=== PATIENT | female | born 1950 | race Caucasian/White ===

== ENCOUNTER → 2023-09-20 09:37 | Outpatient (REF) | payer MEDICARE, BC, SELFPAY | LOC: REG 09:37 | PROVIDERS: ATTENDING PHYSICIAN Internal Medicine Geriatric Medicine | DX: K29.60 Other gastritis without bleeding (principal); R00.2 Palpitations; E78.2 Mixed hyperlipidemia; G25.0 Essential tremor; M54.16 Radiculopathy, lumbar region; I95.1 Orthostatic hypotension; R79.89 Other specified abnormal findings of blood chemistry; Z13.89 Encounter for screening for other disorder; R10.13 Epigastric pain; Z87.19 Personal history of other diseases of the digestive system; G90.1 Familial dysautonomia [Riley-Day]; G62.9 Polyneuropathy, unspecified; E53.1 Pyridoxine deficiency; S16.1XXA Strain of muscle, fascia and tendon at neck level, initial encounter | CPT/HCPCS: 70470; 70492; 72052; Q9967 ==

== ENCOUNTER 2023-10-28 21:04 | Emergency (ER) | payer MEDICARE, BC, SELFPAY ==
[2023-10-28 21:07] VITALS: BP 184/90
--- NOTE | 2023-10-28 23:38 | ED.GENMED ---
History of Present Illness
General
Chief Complaint: Eye Problems
Source: patient and spouse
Exam Limitations: none
Time Seen by Provider: 10/28/23 23:26
Nursing documentation reviewed up to this point in time: agreed with
Travel History
Have you had any contact with someone who has COVID-19?: No
Do you have any symptoms of coronavirus? Fever > 100 degrees, chills, cough, shortness of breath, sore throat, loss of taste or smell, muscle aches, or headache?: No
History of Present Illness
History of Present Illness:
This is a 73-year-old woman who states while she was reaching for something in a cabinet, a container of liquid silver [place] fell over and the lid to the [place] was loose, falling off causing the liquid to spill into her washing machine and
splashed into her right eye. This occurred around 8:15 PM. Patient admits to immediate irritation of her right eye with mildly blurred vision. She immediately rinsed her eye with tap water for at least 10 to 15 minutes. She continued with some
right eye irritation and a sense of blurring of her vision which has since resolved since arrival to the ED. She denies tearing, denies foreign body sensation. She does not wear contacts nor corrective lenses. Her vision now feels back to normal.
No headache.
According to who is accompanying, this over [place] has a pH of 2.
Past History
Past History
ED Past Medical History: Other (POTS); Negative Asthma, HTN, Hypercholesterolemia or NIDDM
ED Past Surgical History: Gynecological and Orthopedic
Social History
Tobacco: Non-smoker
Alcohol: Occasional
Drug: None
Personal:
Living: with family
Employment: Retired
Family History
Family History: Other (Noncontributory)
Phy Exam
Physical Exam
Physical Exam:
GENERAL: Alert , in no apparent distress. 73-year-old woman appears her stated age. She is bright and alert, pleasant, appears in no acute distress. is accompanying.
EYE: pupils equal and reactive. Extraocular muscles intact. Visual acuity grossly intact. There is very minimal conjunctival erythema medial aspect of the right eye. No chemosis. No tearing. Eyelids without erythema nor edema. Right eye
visualized with fluorescein stain and Merida lamp shows no corneal abrasion.
NECK: Supple, nontender, no significant adenopathy.
ENT: oral mucosa is moist. No rhinorrhea.
CARDIAC: Regular rate and rhythm. no murmur.
NEUROLOGICAL: Alert and oriented x3, no focal neuro deficits. Gait is pearson and steady.
SKIN: Warm and dry, normal color, skin intact. No rash.
MUSCULOSKELETAL: No palpable tenderness.
PSYCH: Normal and appropriate interaction.
Course
Orders/Labs/Results
Orders:
Orders
10/28/23 23:38
Gentamicin [Genoptic 0.3% Eye Drops] See Dose Instructions OPHTH NOW STA
10/28/23 23:47
Fluorescein Sodium [Ful-[place]] 2 mg .ROUTE .STK-MED ONE
Vital Signs
Initial and Last Documented VS:
Initial Vital Signs
Temp Pulse Resp BP Pulse Ox
98.6 F 65 18 184/90 99
10/28/23 21:07 10/28/23 21:07 10/28/23 21:07 10/28/23 21:07 10/28/23 21:07
Last Documented Vital Signs
Temp Pulse Resp BP Pulse Ox
98.6 F 66 14 158/74 96
10/28/23 21:07 10/28/23 23:43 10/28/23 23:43 10/28/23 23:43 10/28/23 23:43
MDM/Problems Addressed
Differential Diagnosis Includes:
Patient presents with stitch cleaner/acidic solution splashed into her her right eye. Immediately rinsed with copious amounts of tap water at home.
Currently feeling improved without eye irritation/pain and no vision difficulties.
Exam remarkable for very mild conjunctival injection medial aspect of the right eye. No evidence of corneal abrasion or ulcer.
No evidence of eyelid nor surrounding skin involvement.
Will treat mild chemical conjunctivitis with a short course of gentamicin ophthalmic drops.
Recommend follow-up with english professor as needed.
*Pulse Oximetry
Patient hypoxic: no
*Critical Care Note
Total Time (30-74mins, 75-104mins- exclusive of procedures): Not Applicable
ED Attending Note
-
Portions of this chart may have been created with voice recognition software.� Occasional wrong word or��sound alike� substitutions may have occurred due to the inherent limitations of voice recognition software.
Discharge Plan
Departure
Patient Disposition: Home (Routine Discharge)
Date of Disposition: 10/28/23
Time of Disposition: 23:52
Patient with high blood pressure during this ER visit?: Yes
Condition: Good
Discharge Problem:
Acute chemical conjunctivitis of right eye
Instructions: How to Use Eye Drops, Conjunctivitis (Noninfectious Pinkeye), BLOOD PRESSURE
Prescriptions:
New
gentamicin 0.3 % drops
1 drp ophthalmic (eye) QID Qty: 5 0RF
No Action
amoxicillin 500 MG capsule
500 mg PO BID
Patient Comments:
dose confirmation is necessary!!
albuterol sulfate 1 PUFF HFA aerosol inhaler
2 puff inhalation R Q4HPRN PRN (Reason: wheezing)
progesterone micronized [Prometrium] 100 MG capsule
100 mg PO DAILY
conjugated estrogens [Premarin] 0.3 MG tablet
0.3 mg topical DAILY
Patient Comments:
Delviered via patch. Dose confirmation is necessary!!
prednisone 20 MG tablet
40 mg PO DAILY Qty: 10 0RF
benzonatate 100 MG capsule
100 mg PO TIDPRN PRN (Reason: Cough) Qty: 15 0RF
Activity Restrictions/Additional Instructions:
Follow-up with your english professor/telecommunication equipment repairer next week if eye irritation persists.
Interventions
Interventions:
*Risk Screen - Suicide Last Done: 10/28/23 23:43
*General Assessment Last Done: 10/28/23 21:07
*Neglect/Abuse Screening Last Done: 10/28/23 23:43
*ED COVID-19 Vaccine History Last Done: 10/28/23 21:07
Discharge Date and Time
Print Language: ZIMB[place]WE[place]
[2023-10-28 23:43] VITALS: BP 158/74
[2023-10-28] MEDS: GENOPTIC 0.3% EYE DROPS 1 DROP OPHTH (23:56)
== END 2023-10-29 00:01 | disposition home or self-care (01) ==
LOC: EMR 21:04
PROVIDERS: EMERGENCY PHYSICIAN Emergency Medicine; FAMILY PHYSICIAN Internal Medicine Geriatric Medicine
DX: T65.891A Toxic effect of other specified substances, accidental (unintentional), initial encounter (principal); H10.211 Acute toxic conjunctivitis, right eye; I10 Essential (primary) hypertension
CPT/HCPCS: 99283

== ENCOUNTER → 2023-11-13 09:00 | Outpatient (REF) | payer MEDICARE, BC, SELFPAY | LOC: HWRAD 09:00 | PROVIDERS: ATTENDING PHYSICIAN Nurse Practitioner Family | DX: R22.1 Localized swelling, mass and lump, neck (principal) | CPT/HCPCS: 70470; 70492; Q9967 ==

== ENCOUNTER → 2023-12-14 10:20 | Outpatient (REF) | payer MEDICARE, BC, SELFPAY | LOC: WDC 10:20 | PROVIDERS: ATTENDING PHYSICIAN Nurse Practitioner Family | DX: Z12.31 Encounter for screening mammogram for malignant neoplasm of breast (principal) | CPT/HCPCS: 77063; 77067 ==

== ENCOUNTER → 2023-12-19 10:23 | Outpatient (REF) | payer MEDICARE, BC, SELFPAY | LOC: WDC 10:23 | PROVIDERS: ATTENDING PHYSICIAN Nurse Practitioner Family | DX: R92.8 Other abnormal and inconclusive findings on diagnostic imaging of breast (principal) | CPT/HCPCS: 76642 ==

== ENCOUNTER → 2024-04-22 08:07 | Outpatient (REF) | payer MEDICARE, BC, SELFPAY | LOC: RAD 08:07 | PROVIDERS: ATTENDING PHYSICIAN Internal Medicine Geriatric Medicine | DX: Z00.00 Encounter for general adult medical examination without abnormal findings (principal); N95.9 Unspecified menopausal and perimenopausal disorder; R00.2 Palpitations; K29.60 Other gastritis without bleeding; E78.2 Mixed hyperlipidemia; G25.0 Essential tremor; M54.16 Radiculopathy, lumbar region; I95.1 Orthostatic hypotension | CPT/HCPCS: 76700; 77080 ==

== ENCOUNTER → 2024-10-04 11:03 | Outpatient (REF) | payer MEDICARE, BC, SELFPAY | LOC: RCS 11:03 | PROVIDERS: ATTENDING PHYSICIAN Nurse Practitioner Family | DX: R00.2 Palpitations (principal) | CPT/HCPCS: 93005 ==

== ENCOUNTER 2025-03-17 17:23 | Day surgery (SDC) | payer MEDICARE, BC, SELFPAY ==
[2025-03-17] VITALS (12 sets, daily range): BP systolic 125–151; BP diastolic 62–92
[2025-03-17 11:11] LABS: Hematocrit 42.2 % (37.0-47.0); Hemoglobin 14.0 g/dL (12.0-16.0); Mean Corp Hgb Conc. 33.2 g/dL (33.0-37.0); Mean Corpuscular Volume 91.5 fL (81.0-99.0); Nucleated Red Blood Cells % 0 %; Platelet Count 230 10^3/uL (130-400); Red Cell Dist. Width 13.4 % (11.5-14.5)
[2025-03-17 11:32] LABS: ALT (SGPT) 18 U/L (0-35); AST (SGOT) 22 U/L (14-36); Albumin 4.3 g/dl (3.5-5.0); Alkaline Phosphatase 61 U/L (38-126); Blood Urea Nitrogen 17 mg/dl (7-17); Calcium 9.2 mg/dl (8.4-10.2); Carbon Dioxide 27 mmol/L (22-30); Chloride 108 mmol/L (98-107); Glucose 106 mg/dl (70-99); Lipase 76 U/L (23-300); Potassium 4.1 mmol/L (3.5-5.1); Sodium 140 mmol/L (135-145); Total Protein 7.0 g/dl (6.3-8.2); eGFR > 60.00
[2025-03-17 11:38] LABS: Urine Character Clear (Clear)
--- NOTE | 2025-03-17 16:23 | ED.GENMED ---
History of Present Illness
General
Chief Complaint: Abdominal Pain
Time Seen by Provider: 03/17/25 12:37
History of Present Illness
History of Present Illness:
74-year-old female presents to the emergency department for evaluation of generalized abdominal pain that began last night. She reports over the past month she has had intermittent increase in heartburn has been taking Pepcid for this. Notes that
last night she began to feel bloated and constipated although did have a bowel movement yesterday that was nonbloody and nonmelanotic. Pain seems to wax and wane throughout the day but is worse when upright and walking. No fevers or chills. No
prior abdominal surgeries
Past History
Past History
ED Past Medical History: Other (POTS); Negative Asthma, HTN, Hypercholesterolemia or NIDDM
ED Past Surgical History: Gynecological and Orthopedic
Social History
Tobacco: Non-smoker
Alcohol: Occasional
Drug: None
Personal:
Living: with family
Employment: Retired
Family History
Family History: Other (Noncontributory)
Review of Systems
Review of Systems
Allergies reviewed?: Yes
All Other Systems: ROS reviewed and negative except as documented in HPI and ROS
Phy Exam
Physical Exam
Physical Exam:
GEN: Well appearing, NAD, WDWN
HEENT: Oral mucosa moist, no scleral icterus
Cardiac: Regular rate
Lung: No respiratory distress, no tachypnea
Abdomen: Soft, focal right lower quadrant tenderness, no rigidity or peritoneal signs
MSK: No gross deformity or injuries
Skin: Good color, no pallor or jaundice, no rashes
Neuro: AO x3, moves all extremities freely
Psych: Calm, cooperative
Course
Orders/Labs/Results
Orders:
Orders
03/17/25 Lunch
NPO
Allow oral meds: Yes
Allow clear liquids: No
03/17/25 10:51
Electrocardiogram (*1) Urgent
Reason for Study: Abdominal Pain
03/17/25 10:52
EKG- Treatment ONCE
03/17/25 11:00
Complete Blood Count/With Diff Urgent
Comprehensive Metabolic Panel Urgent
Lipase Urgent
03/17/25 11:10
Urinalysis Reflex To Culture Urgent
Date Specimen was Collected: 03/17/25
Time Specimen was Collected: 10:51
03/17/25 12:54
CT Abd/Pel (IV only)-DH only Urgent
Comment:
Reason For Exam: RLQ pain
03/17/25 Dinner
Regular
03/17/25 16:22
Lactated Ringers [Lr] 1,000 ml IV BOLUS
Piperacillin/Tazo 3.375 Gram [Zosyn] 3.375 gram in 50 ml IV NOW
03/17/25 16:37
Dexamethasone Sod Phosphate [Decadron] 20 mg .ROUTE .STK-MED ONE
Fentanyl Citrate/Pf [Sublimaze] 100 mcg .ROUTE .STK-MED ONE
Lidocaine HCl/Pf [Xylocaine-Mpf 1% Vial] 50 mg .ROUTE .STK-MED ONE
Midazolam HCl [Versed] 2 mg .ROUTE .STK-MED ONE
Ondansetron Injectable [Zofran] 4 mg .ROUTE .STK-MED ONE
Propofol [Diprivan] 20 ml .ROUTE .STK-MED
Rocuronium [place] [Rocuronium] 50 mg .ROUTE .STK-MED ONE
03/17/25 16:39
Fentanyl Citrate/Pf [Sublimaze] 25 mcg IV [id number] PRN
HYDROmorphone [Dilaudid] 0.25 mg IV PACU-Q5MPRN PRN
HYDROmorphone [Dilaudid] 0.5 mg IV PACU-Q5MPRN PRN
Ondansetron Injectable [Zofran] 4 mg IV PACU-ONCEPRN PRN
Notify MD As Directed
Notify physician if: for SDS patients with known or suspected sleep obstructive sleep apnea, monitor in the
PACU.
Notify MD for any apneic/desaturation episodes
O2 Therapy [RESP] Urgent
Titrate/Wean O2 to maintain O2 sat greater than (%): 92
Special Instructions: -Provide supplemental oxygen to achieve O2 sat of 92% or greater.
-After 15 min, may wean O2 and discontinue if patient is able to maintain O2 sat of 92%
or greater during recovery period.
If patient is a discharge home, without oxygen therapy, notify anestheiologist if
unable to maintain O2 SAT of 92% or greater on room air for MD clearance.
03/17/25 16:41
Sequential Compression Device [Pneumatic Compression Sleeves] As Directed
Type: Knee high
03/17/25 16:42
DX Deep Vein Thrombosis Video Routine
03/17/25 16:45
Normosol (Mult Electrolytes) [Normosol-R/Plasmalyte-A] 1,000 ml IV PER PROTOCOL
03/17/25 17:02
Bupivacaine 0.5%Pf/Epinephrin [Sensorcain-Mpf Epi 0.5%-0.0005] 30 ml .ROUTE .STK-MED ONE
03/17/25 17:17
Admit Patient As Directed
Co-Sign Provider:
Level of Care: Post Proc/Surg Recovery
Assign to:: Medical/Surgical
Physician / Group: Keegan/Gen surgery
Diagnosis: Acute appendicitis
Reason for Overnight Stay: Standard of Care
Code Status As Directed
Resuscitation Status: Full Code
Acetaminophen [Tylenol] 650 mg PO Q4HPRN PRN
HYDROmorphone [Dilaudid] 0.5 mg IV Q4HPRN PRN
HYDROmorphone [Dilaudid] 1 mg IV Q4HPRN PRN
Ondansetron Injectable [Zofran] 4 mg IV Q6HPRN PRN
Oxycodone [Roxicodone] 5 mg PO Q4HPRN PRN
Activity As Directed
Activity Level: Out of Bed-Early Mobility
Intake/ Output As Directed
Frequency: Per unit guidelines
Vital Signs As Directed
Frequency: Per unit guidelines
PRN Pain Medication Management As Directed
May give lesser potent ordered pain med per pt: Yes
preference::
Protocol:: Medication orders for pain may be administered in a
manner that supports deferring to patient preference
when the pt is:
- Requesting an ordered lesser potent pain medication.
Least to most potent pain medications are defined
as: acetaminophen < NSAID < tramadol < opioids
(morphine, oxycodone, hydromorphone).
- Requesting a lesser dose of the same medication IF
ORDERED.
- Requesting a less intrusive route of administration
if both routes are prescribed by the provider (PO <
IV).
03/17/25 17:18
Rx Incentive Spirometry [RESP] Routine
Frequency: q1h while awake
# of times per hour: 10
03/17/25 17:48
OR Pathology Routine
Pre-Operative Diagnosis: ACUTE APPENDICITIS
Post-Operative Diagnosis: SAME
Operative Procedure: LAP APPY
Surgeon: KEEGAN
Circulating Nurse: SYLVAIN
Specimen Type: APPENDIX
03/17/25 18:16
Ketorolac [Toradol] 30 mg .ROUTE .STK-MED ONE
Sugammadex Sodium [[place]] 200 mg .ROUTE .STK-MED ONE
03/17/25 23:00
Piperacillin/Tazo 3.375 Gram [Zosyn] 3.375 gram in 50 ml IV Q6H
03/18/25 00:00
Ketorolac [Toradol] 10 mg IV Q6HPRN PRN
Abnormal Lab Results
03/17/25
11:00
WBC 12.1 H 10^3/uL
(4.8-10.8)
Absolute Neuts (auto) 10.3 H 10^3/uL
(1.4-6.5)
Absolute Lymphs (auto) 1.1 L 10^3/uL
(1.2-3.4)
Neutrophils % 85.4 H %
(42.2-75.2)
Lymphocytes % 9.0 L %
(20.5-51.1)
Chloride 108 H mmol/L
(98-107)
Glucose 106 H mg/dl
(70-99)
03/17/25 11:00
03/17/25 11:00
Vital Signs
Initial and Last Documented VS:
Initial Vital Signs
Temp Pulse Resp BP Pulse Ox
98.3 F 79 20 142/92 99
03/17/25 10:47 03/17/25 10:47 03/17/25 10:47 03/17/25 10:47 03/17/25 10:47
Last Documented Vital Signs
Temp Pulse Resp BP Pulse Ox
98.1 F 87 9 140/73 96
03/17/25 18:21 03/17/25 18:45 03/17/25 18:45 03/17/25 18:45 03/17/25 18:45
MDM/Problems Addressed
MDM/Problems Addressed:
Imaging reveals acute appendicitis which is compatible with her clinical presentation. Will be admitted to the surgical service for operative intervention
*Pulse Oximetry
SaO2: 99
Oxygen Mode of Delivery: Room air
Patient hypoxic: no
*Critical Care Note
Total Time (30-74mins, 75-104mins- exclusive of procedures): Not Applicable
ED Attending Note
-
Portions of this chart may have been created with voice recognition software.� Occasional wrong word or��sound alike� substitutions may have occurred due to the inherent limitations of voice recognition software.
Discharge Plan
Departure
Patient Disposition: Admit
Date of Disposition: 03/17/25
Time of Disposition: 16:23
Admit to: Med/Surg
Presentation/result/management discussed w/ accepting MD/DO: Gen Lotus Allison
Discharge Problem:
Acute appendicitis
Interventions
Interventions:
*Risk Screen - Suicide Last Done: 03/17/25 13:47
*General Assessment Last Done: 03/17/25 13:47
*Neglect/Abuse Screening Last Done: 03/17/25 13:47
*ED- Fall Risk Assessment Last Done: 03/17/25 13:47
*Nursing Disposition Last Done: 03/17/25 17:08
BK-Nozigc-Jtfxdmzooz Assessment Last Done: 03/17/25 13:46
Discharge Date and Time
Discharge Date/Time: 03/17/25 17:09
[2025-03-17] MEDS: ZOSYN 50 IV ×2 (16:30→22:45)
--- NOTE | 2025-03-17 17:02 | W.SUR.PREOP ---
Pre-Operative Surgical Note
-
I have examined this patient prior to the performance of the scheduled procedure.
The patient's condition is unchanged from the time of the current History and
Physical and the patient is able to undergo the scheduled procedure.
--- NOTE | 2025-03-17 17:03 | HPS.HSE ---
Addendum entered and electronically signed by Denton Allison MD 03/17/25 17:16:
I saw and examined the patient independently.
The Bed Rubber's note was reviewed and I agree with the note, assessment and plan except where noted below.
Comment: This is a 74-year-old female with no significant past medical history who presents with 1 day of right lower quadrant abdominal pain found to have acute appendicitis.
Will plan for laparoscopic appendectomy today.
Will admit to the surgical service, PSR
N.p.o., IV fluids, IV antibiotics.
Risks/Benefits/Alternatives, expected postoperative course and possible complications (bleeding, infection, injury to surrounding structures, acute/chronic pain) discussed at length. Patient wishes to proceed with surgery. All questions answered.
Consent obtained.
I spent 65 minutes in total for the care of this patient today including direct patient care and counseling, reviewing labs, imaging, coordination of care, as well as documentation.
Original Note:
Family Physician
-
Family Physician: Radhames Soria
Chief Complaint
-
RLQ pain
History of Present Illness
Ms Butcher is a 74 yo female with a h/o POTS, BL knee surgery, ODILIA (not on cpap), oab and essential tremor who presents through the ED with RLQ pain which began last night. Initially her pain was more generalized, but then began to localize to her RLQ
where it remains. Over the past few weeks she has noted increasing symptoms of indigestion and GERD and has been taking OTC agents, but she denies associated pain or nausea with this. She has felt bloated. She was able to have a BM last night but
did feel a little constipated. On exam, RLQ is tender with +Rovsing sign. She denies fevers or chills and has been afebrile in the ED.
Medical History
Past Medical History
Past Medical History: Reports Other (POTS, OAB, Essential tremor, lumbar radiculopathy, DDD)
Past Surgical History: Reports Orthopedic (BL Knees)
Social History
Tobacco: Non-smoker
Alcohol: Occasional
Drug: None
Personal:
Family History
Family History: Cancer (colon ca in father)
Allergies / Home Medications
Allergies reflects when Allergies were last updated in [employer].
Home Medications with original date entered in [employer]
Allergy/Medication List:
Patient Allergies
Allergy/AdvReac Type Severity Reaction Status Date / Time
ciprofloxacin (From Cipro) Allergy Unknown Verified 03/17/25 10:47
latex Allergy Unknown Verified 03/17/25 10:47
sulfamethoxazole (From Allergy Unknown Verified 03/17/25 10:47
Bactrim)
trimethoprim (From Bactrim) Allergy Unknown Verified 03/17/25 10:47
�Medication �Instructions �Recorded �Confirmed �Type
progesterone micronized 100 mg 100 mg PO HS 10/02/16 03/17/25 History
capsule (Prometrium)
estradiol 0.0375 mg/24 hr 1 patch transdermal MOTH 03/17/25 03/17/25 History
semiweekly transdermal patch
Review of Systems
-
History Source: Patient and Family
A 12 point ROS was completed and negative except as noted: Yes
Physical Exam
Vital Signs
Vital Signs
Temp Pulse Resp BP Pulse Ox
98.3 F 79 20 142/92 99
03/17/25 10:47 03/17/25 10:47 03/17/25 10:47 03/17/25 10:47 03/17/25 16:24
Physical Exam
General: Well Developed and Well Nourished; No Comfortable
HEENT: NormoCephalic and Moist mucous membranes
Respiratory: Non Labored Respirations
GI: Soft, Non Distended and Tender (RLQ)
Skin: Warm and Dry
Neuro: Awake, Alert and AO x 3
Psych: Anxious
Laboratory Results
-
08/18/25 11:00
03/17/25 11:00
Laboratory Results
Total Bilirubin 0.6 mg/dl (0.2-1.3) 03/17/25 11:00
AST 22 U/L (14-36) 03/17/25 11:00
ALT 18 U/L (0-35) 03/17/25 11:00
Alkaline Phosphatase 61 U/L (38-126) 03/17/25 11:00
Lipase 76 U/L (23-300) 03/17/25 11:00
Data Reviewed
-
CT Scan: Image Personally Visualized and interpreted, Report Reviewed by me, Discussed with Physician, Discussed with Patient and Discussed with Family
Lab Data: Labs Reviewed by me, Discussed with Physician, Discussed with Patient and Discussed with Family
Old Records: Reviewed
Impression/Plan
-
IMPRESSION: 74 yo female presenting with one day of RLQ pain with associated tenderness. Mild leukocytosis present with a WBC of 12.[address] imaging as well as exam consistent with acute appendicitis. Afebrile. VSS.
PLAN:
Keep NPO for OR
Zosyn given in the ED
Analgesics prn
Start IVF
SCDS for VTE ppx
Will plan operative intervention this evening with laparoscopic appendectomy
--- NOTE | 2025-03-17 18:09 | W.IMMPOSTOP ---
Surgical Immed Post Op Note
-
Primary Surgeon: Denton Allison MD
Assisting Surgeon: None
Pre-op Diagnosis: Acute appendicitis
Post-op Diagnosis: Same
Procedure Performed: Laparoscopic appendectomy
Anesthesia Type: General
Specimen / Cultures: Appendix
Estimated Blood Loss: 7 cc
Complications: None
Operative Findings: Acutely inflamed, mildly suppurative but nonperforated acute appendicitis. Base clear, ligated with a 0 PDS Endoloop x 2
POST OP PLAN:
Imaging: None
Labs: Routine AM
Diet: Advance to Regular as tolerated
Analgesia: Tylenol 650mg q6 Marivel, Dilaudid 0.5mg q2h PRN
Neuro/vascular checks: Per unit protocol
AC/AP: Hold Therapeutic AC, Ok for DVT PPx
Activity: Ad Maria
Wound/Incisions/Drains: Routine
Abx: Will continue antibiotics while admitted, will stop on discharge.
Dispo: RNF, anticipate discharge home tomorrow.
--- NOTE | 2025-03-17 18:10 | OR.RPT ---
Operative Report
Operative Report
Patient Name: Glenny Butcher
: 1950
Date of Operation: 03/17/2025
Preoperative Diagnosis: Acute Appendicitis
Postoperative Diagnosis: Same
Procedure(s):
Laparoscopic Appendectomy
Surgeon(s):
Dr. Allison
Inspector Machine Cut Glass(s):
None
Anesthesia: General
Estimated Blood Loss: 7 cc
Urine Output: None
Drains/Lines/Implants: None
Specimens:
1. Appendix
HPI/Surgical Indications:
This is a 74-year-old female who presents with a 1 day history of abdominal pain. Exam, labs and imaging are consistent with acute appendicitis. Risks/Benefits/Alternatives were discussed at length, and the patient agreed to proceed with surgery.
Operative Findings: Acutely inflamed, mildly suppurative but nonperforated acute appendicitis. Base clear, ligated with a 0 PDS Endoloop x 2
Procedure Description:
The patient was placed in the supine position, with the left arm tucked, and general anesthesia was induced. The abdomen was prepared and draped in a sterile fashion so as to expose the entire abdomen. A surgical time out was taken. Abdominal access
was obtained with a left subcostal Veress entry which required a single pass followed by a 5 mm left lower quadrant port, we then placed an additional 5 mm suprapubic port making sure not to injure her distended bladder. We then also placed a 12 mm
iinfra-umbilical port. The patient was placed in Trendelenberg with the right slightly up . The appendix was identified and a window was created in the mesoappendix. The appendix was suppurative and inflamed but not perforated. Using a laparoscopic
bipolar energy device, the meso appendix was divided. The base of the appendix appeared uninvolved and was ligated/divided using two 0-PDS Endoloops and the energy device. The appendix was placed in a specimen retrieval bag. Hemostasis was confirmed
and the ports were removed under visualization. The specimen was passed off the field. The umbilical port was closed with a [id number] 0-PDS and the skin for all three ports was closed with interrupted monocryls and covered with dermabond. The
patient was awoken from anesthesia in good condition and transported to the recovery area.
I was the attending physician and performed the procedure with no assistance. I was present for all portions of the case.
Denton Allison MD
[2025-03-18 03:30] VITALS: BP 124/63
--- NOTE | 2025-03-18 03:50 | PTCARENOTE ---
Ms Butcher is a 74 yo female arrived from PACU at 20:30 post Laparoscopic Appendectomy, with by her side. PMH includes POTS, BL knee surgery, ODILIA (not on cpap), oab and essential tremor. Pt bed is in a low position, call light in reach, denies
pain at this time, care ongoing.
[2025-03-18] MEDS: ZOSYN 50 IV ×2 (05:13→11:33)
[2025-03-18 07:25] VITALS: BP 105/58
[2025-03-18 07:39] LABS: Hematocrit 37.3 % (37.0-47.0); Hemoglobin 12.5 g/dL (12.0-16.0); Mean Corp Hgb Conc. 33.5 g/dL (33.0-37.0); Mean Corpuscular Volume 90.1 fL (81.0-99.0); Nucleated Red Blood Cells % 0 %; Platelet Count 228 10^3/uL (130-400); Red Cell Dist. Width 13.4 % (11.5-14.5)
[2025-03-18 08:05] LABS: ALT (SGPT) 20 U/L (0-35); AST (SGOT) 23 U/L (14-36); Albumin 3.6 g/dl (3.5-5.0); Alkaline Phosphatase 51 U/L (38-126); Blood Urea Nitrogen 18 mg/dl (7-17); Calcium 8.5 mg/dl (8.4-10.2); Carbon Dioxide 25 mmol/L (22-30); Chloride 108 mmol/L (98-107); Estimated Creatinine Clearance 58 ml/min; Glucose 133 mg/dl (70-99); Potassium 4.3 mmol/L (3.5-5.1); Sodium 139 mmol/L (135-145); Total Protein 6.0 g/dl (6.3-8.2); eGFR > 60.00
--- NOTE | 2025-03-18 08:07 | W.PN.GS2 ---
Addendum entered and electronically signed by Denton Allison MD 03/18/25 13:02:
I saw and examined the patient independently.
The resident's documentation was reviewed and I agree with the note, assessment and plan except where noted below.
Comment:
74-year-old female postoperative day 1 from a laparoscopic appendectomy. Doing well, expected post operative course.
Cleared for discharge from a surgery perspective. No antibiotics needed on discharge.
Original Note:
Today's Communication / Plan
-
Planning for discharge.
Assessment / Plan
-
74 yr F with no past h/o presented with RLQ abdominal pain diagnosed as acute appendicitis on DAY 1 laparoscopic appendicectomy
Afebrile,
WBC - 8 (n), Hb - 12.5 (n)
Zosyn 3.375 gm DAY 2
pt passed flatus, advance to regular diet.
currently pt on Piptaz planning to switch to Augmentin while on discharge.
Subjective Data
-
Date of Service: March 18, 2025
overnight pt has no concern for nausea, vomiting, fever, chills.
Patient is ambulating around the room, she has a concern for abdominal pain (pain scale 4/10) when she gives pressure to the abdomen.
Objective Data
-
Intake and Output
03/17/25 03/18/25 03/19/25
06:59 06:59 06:59
Intake Total 340 / 340
Output Total 350 / 350 300 / 300
Balance -350 / -350 40 / 40
Intake:
Oral fluids 240 / 240
IV piggybacks 100 / 100
Output:
Urine, Perez 100 / 100
Urine, Voided 250 / 250 300 / 300
Other:
Number of approximated MODERATE 3
amounts of urine
Vital Signs
Temp Pulse Resp BP Pulse Ox
97.8 F 62 14 124/63 96
03/18/25 03:30 03/18/25 03:30 03/18/25 03:30 03/18/25 03:30 03/18/25 03:30
Lab Results
03/18/25 07:25
03/18/25 07:25
Calcium 8.5 mg/dl (8.4-10.2) 03/18/25 07:25
Total Bilirubin 0.8 mg/dl (0.2-1.3) 03/18/25 07:25
AST 23 U/L (14-36) 03/18/25 07:25
ALT 20 U/L (0-35) 03/18/25 07:25
Alkaline Phosphatase 51 U/L (38-126) 03/18/25 07:25
Total Protein 6.0 g/dl (6.3-8.2) L 03/18/25 07:25
Albumin 3.6 g/dl (3.5-5.0) 03/18/25 07:25
Physical Exam
-
General: AFVSS
HEENT: NormoCephalic and Moist mucous membranes
Respiratory: Non Labored Respirations
GI: Soft, Non Distended and Tender RLQ with well healing laparoscopic incision site.
Skin: Warm and Dry
Neuro: Awake, Alert and AO x 3
Psych: Anxious
Patient has a perez catheter: No
Patient has a central line: No
--- NOTE | 2025-03-18 09:46 | CM ---
Cm reviewed medical records. Patient confirmed demographics. Patient does not have a history of VN, SNF or DME. Patient is active with her PCP. Patient has medication coverage.
PLAN: Home with , no needs noted.
[2025-03-18 11:10] VITALS: BP 124/65
[2025-03-18 13:27] VITALS: BP 114/66
[2025-03-18 15:39] VITALS: BP 105/62
== END 2025-03-18 15:55 | disposition home or self-care (01) ==
LOC: PACU 17:23
PROVIDERS: ATTENDING PHYSICIAN Surgery; EMERGENCY PHYSICIAN Emergency Medicine; FAMILY PHYSICIAN Internal Medicine Geriatric Medicine
DX: K35.80 Unspecified acute appendicitis (principal); K38.1 Appendicular concretions
CPT/HCPCS: 44970; 74177; 80053; 81003; 83690; 85025; 88304; 93005; 96365; 99285; Q9967

== ENCOUNTER → 2025-07-03 12:39 | Outpatient (REF) | payer MEDICARE, BC, SELFPAY | LOC: HWRAD 12:39 | PROVIDERS: ATTENDING PHYSICIAN Nurse Practitioner Adult Health | DX: N32.81 Overactive bladder (principal); R35.1 Nocturia; R35.0 Frequency of micturition | CPT/HCPCS: 76770 ==